=== PATIENT | female | born 1955 | race Caucasian/White ===

== ENCOUNTER → 2019-08-13 13:04 | Outpatient (CLI) | payer OTHER, SELFPAY ==
--- NOTE | 2019-08-13 13:07 | DI.MG.S_ITS ---
BILATERAL DIGITAL DIAGNOSTIC MAMMOGRAM 3D/2D: 08/13/2019 CLINICAL: Left breast lump. Comparison is made to exams dated: 02/06/2018 mammogram, 05/25/2016 mammogram, and 10/20/2014 mammogram - [facility]. There are scattered fibroglandular elements in both breasts. No significant masses, calcifications, or other findings are seen in either breast. IMPRESSION: INCOMPLETE: NEEDS ADDITIONAL IMAGING EVALUATION There is no mammographic abnormality seen in the left breast to correspond with the palpable abnormality at 6 o'clock, however, targeted ultrasound of the left breast is recommended and will be performed immediately following this exam. This exam was interpreted at Station ID: [id number]. NOTE: For mammograms, a report in lay terms will be sent to the patient. Approximately 15% of breast malignancies will not be visualized mammographically. In the management of a palpable breast mass, a negative mammogram must not discourage biopsy of a clinically suspicious lesion. Electronically Signed By: Abida Enriquez M.D. lk/:08/13/2019 13:41:09 ACR BI-RADS Category 0: Incomplete [id number]
--- NOTE | 2019-08-13 13:07 | DI.US.S_ITS ---
ULTRASOUND OF LEFT BREAST: 08/13/2019 CLINICAL: Palpable left breast lump by physician. Comparison is made to exams dated: 08/13/2019 mammogram - [facility], 02/06/2018 mammogram, 05/25/2016 mammogram, and 10/20/2014 mammogram - [facility]. Color flow ultrasound of the left breast was performed on the areas of interest. Marquez scale images of the real-time examination were reviewed. IMPRESSION: NEGATIVE There is no sonographic evidence of malignancy. There is no mammographic or sonographic abnormality seen in the left breast to correspond with the palpable abnormality, however, clinical followup is recommended. A 1 year screening mammogram is recommended. This exam was interpreted at Station ID: [id number]. Electronically Signed By: Abida mcclure/chika:08/13/2019 14:27:45 letter sent: Clinical Evaluation Ultrasound BI-RADS: 1 Negative
== END ==
PROVIDERS: PCP Nurse Practitioner; Visit Provider Nurse Practitioner
DX: R92.8 Other abnormal and inconclusive findings on diagnostic imaging of breast (principal); N63.25 Unspecified lump in the left breast, overlapping quadrants
CPT/HCPCS: 76642; 77066; G0279

== ENCOUNTER → 2020-09-20 11:38 | Outpatient (CLI) | payer OTHER, SELFPAY ==
--- NOTE | 2020-09-20 | DI.MG.S_ITS ---
BILATERAL DIGITAL SCREENING MAMMOGRAM 3D/2D WITH CAD: 09/20/2020 CLINICAL: Routine screening. Family history of breast cancer. Comparison is made to exams dated: 08/13/2019 mammogram - [facility], 02/06/2018 mammogram, and 05/25/2016 mammogram - [facility]. There are scattered fibroglandular elements in both breasts. Current study was also evaluated with a Computer Aided Detection (CAD) system. No significant masses, calcifications, or other findings are seen in either breast. There has been no significant interval change. IMPRESSION: NEGATIVE There is no mammographic evidence of malignancy. A 1 year screening mammogram is recommended. This exam was interpreted at Station ID: [id number]. NOTE: For mammograms, a report in lay terms will be sent to the patient. Approximately 15% of breast malignancies will not be visualized mammographically. In the management of a palpable breast mass, a negative mammogram must not discourage biopsy of a clinically suspicious lesion. Electronically Signed By: Marv delacruz/chika:09/20/2020 13:02:04 letter sent: Normal Exam ACR BI-RADS Category 1: Negative [id number]
== END ==
PROVIDERS: PCP Student in an Organized Health Care Education/Training Program; Referring Provider Student in an Organized Health Care Education/Training Program; Visit Provider Student in an Organized Health Care Education/Training Program
DX: Z12.31 Encounter for screening mammogram for malignant neoplasm of breast (principal); Z80.3 Family history of malignant neoplasm of breast
CPT/HCPCS: 77063; 77067

== ENCOUNTER → 2021-10-05 07:41 | Outpatient (CLI) | payer OTHER, SELFPAY ==
--- NOTE | 2021-10-05 | DI.MG.S_ITS ---
BILATERAL DIGITAL SCREENING MAMMOGRAM 3D/2D WITH CAD: 10/05/2021 CLINICAL: Routine screening. Family history of breast cancer. Comparison is made to exams dated: 09/20/2020 mammogram, 08/13/2019 mammogram - [facility], and 02/06/[address] [facility]. There are scattered fibroglandular elements in both breasts. Current study was also evaluated with a Computer Aided Detection (CAD) system. There is a possible developing asymmetry in the left breast posterior depth lateral region seen on the craniocaudal view only. This is more prominent. There also is possible developing architectural distortion in the left breast anterior depth central to the nipple seen on the craniocaudal view only. No other significant masses, calcifications, or other findings are seen in either breast. IMPRESSION: INCOMPLETE: NEEDS ADDITIONAL IMAGING EVALUATION The possible developing asymmetry in the left breast posterior depth lateral region seen on the craniocaudal view only is indeterminate. The possible developing architectural distortion in the left breast anterior depth central to the nipple seen on the craniocaudal view only is indeterminate. Additional views with possible ultrasound are recommended. This exam was interpreted at Station ID: [id number]. NOTE: For mammograms, a report in lay terms will be sent to the patient. Approximately 15% of breast malignancies will not be visualized mammographically. In the management of a palpable breast mass, a negative mammogram must not discourage biopsy of a clinically suspicious lesion. Electronically Signed By: Jonatan Maki M.D. slc/:10/05/2021 09:35:50 letter sent: Additional Imaging Needed ACR BI-RADS Category 0: Incomplete [id number]
== END ==
PROVIDERS: PCP Student in an Organized Health Care Education/Training Program; Referring Provider Student in an Organized Health Care Education/Training Program; Visit Provider Student in an Organized Health Care Education/Training Program
DX: Z12.31 Encounter for screening mammogram for malignant neoplasm of breast (principal); Z80.3 Family history of malignant neoplasm of breast
CPT/HCPCS: 77063; 77067

== ENCOUNTER → 2021-11-17 11:55 | Outpatient (CLI) | payer OTHER, SELFPAY ==
--- NOTE | 2021-11-17 | DI.MG.S_ITS ---
UNILATERAL LEFT DIGITAL DIAGNOSTIC MAMMOGRAM 3D/2D WITH ADDITIONAL VIEWS: 11/17/2021 CLINICAL: Additional evaluation requested from prior study. Comparison is made to exams dated: 10/05/2021 mammogram, 09/20/2020 mammogram, 08/13/2019 ultrasound, 08/13/[address] - [facility], and 02/06/2018 mammogram - [facility]. There are scattered fibroglandular elements in left breast. The previously seen possible developing asymmetry and area of possible architectural distortion in the left breast are no longer visualized, presumably secondary to superimposed fibroglandular breast tissue on the prior exam. No significant masses, calcifications, or other findings are seen in the breast. IMPRESSION: NEGATIVE There is no mammographic evidence of malignancy. Return to annual mammogram screening schedule is recommended. This exam was interpreted at Station ID: [id number]. NOTE: For mammograms, a report in lay terms will be sent to the patient. Approximately 15% of breast malignancies will not be visualized mammographically. In the management of a palpable breast mass, a negative mammogram must not discourage biopsy of a clinically suspicious lesion. Electronically Signed By: Marv delacruz/chika:11/17/2021 13:34:58 letter sent: Normal Exam ACR BI-RADS Category 1: Negative [id number]
== END ==
PROVIDERS: PCP Student in an Organized Health Care Education/Training Program; Referring Provider Student in an Organized Health Care Education/Training Program; Visit Provider Student in an Organized Health Care Education/Training Program
DX: R92.8 Other abnormal and inconclusive findings on diagnostic imaging of breast (principal)
CPT/HCPCS: 77065; G0279

== ENCOUNTER → 2022-06-29 10:38 | Outpatient (CLI) | payer MEDICARE, OTHER, SELFPAY | PROVIDERS: PCP Registered Nurse; Referring Provider Registered Nurse; Visit Provider Registered Nurse | DX: Z13.820 Encounter for screening for osteoporosis (principal); Z78.0 Asymptomatic menopausal state | CPT/HCPCS: 77080 ==

== ENCOUNTER 2022-10-24 19:36 | Emergency (ER) | payer MEDICARE, OTHER, SELFPAY ==
[2022-10-24 19:46] VITALS: BP 191/88; PULSE 75; RESP 20; TEMP 36.9; O2SAT 100; BMI 21.1
--- NOTE | 2022-10-24 20:00 | ED_ITS ---
HPI - Dental/Oral General Chief complaint: Dental/Oral Stated complaint: BP high/jaw pain Time Seen by Provider: 10/24/22 19:55 Source: patient Mode of arrival: Ambulatory Limitations: no limitations History of Present Illness HPI Narrative: This is a 67-year-old female with history of Raynaud's who presents with right dental/jaw pain. Patient states it has been present since Saturday. Patient saw the dentist no infection but they did refer her to see Dermatology as there is a spot in that area. She is had similar symptoms a few years ago that resolved without any intervention she saw a dentist at that time followed up there PCP and it eventually resolved. Patient notes it seems to be the upper teeth posteriorly on the right. She states it is worse if she bites down it is 5/7 at all times but 7/10 when she bites. She states it sometimes goes down to the other teeth. She has not had any swelling, redness or skin changes otherwise. She denies fevers or chills, no chest pain, no shortness of breath, no nausea no vomiting no radiation elsewhere. Patient took some ibuprofen earlier today but states that often makes her blood pressure go up. She was checking her blood pressure at home and noted it was elevated to the 170 range. She is not taken anything since noon for pain. Patient states that she does not have a history of hypertension, her systolic is typically much lower. Patient states she is allergic to amlodipine she was on it for Raynaud's and had reaction as well as sulfa and lidocaine. No tobacco, alcohol or illicit. She is accompanied by her sister. Related Data Home Medications Medication Instructions Recorded Confirmed cholecalciferol (vitamin D3) 50 3,000 unit PO DAILY 05/08/19 06/23/19 mcg (2,000 unit) capsule loratadine 10 mg tablet (Allergy 10 mg PO DAILY 05/08/19 06/23/19 Relief (loratadine)) multivit with 1 tab PO DAILY 05/08/19 06/23/19 [id number]-NH-lutein 8 mg iron-400 mcg-300 mcg tablet (Multivitamin Women 50 Plus) omega-3 fatty acids 1,000 mg 1,000 mg PO DAILY 05/08/19 06/23/19 capsule (Fish Oil Concentrate) psyllium husk (with sugar) 3 1 tbsp PO DAILY 05/08/19 06/23/19 gram/7 gram oral powder (Metamucil Free) triamcinolone acetonide 55 mcg intranasal 05/08/19 06/23/19 mcg/actuation nasal spray,aerosol Previous Rx's Medication Instructions Recorded conjugated estrogens 0.625 mg/gram 0.625 mg vaginal DAILY vaginal 06/23/19 vaginal cream atrophy #30 grams varicella-zoster glycoE [id number] 0.5 ml IM ONCE #1 ea 06/23/19 adj(PF) 50 mcg/0.5 mL IM susp, kit (Shingrix (PF)) albuterol sulfate 90 mcg/actuation 1 puff inhalation Q4-6H PRN 1 puff 07/14/19 aerosol inhaler (Ventolin HFA) inhaled as needed for SOB #6.7 grams Allergies Allergy/AdvReac Type Severity Reaction Status Date / Time Latex, Natural Rubber Allergy Verified 10/24/22 19:56 lidocaine Allergy Verified 10/24/22 19:56 Sulfa (Sulfonamide Allergy Verified 10/24/22 19:56 Antibiotics) amlodipine AdvReac Cramping Verified 10/24/22 19:56 of the Muscles Review of Systems Review of Systems ROS Unobtainable: All systems reviewed & are unremarkable except as noted in HPI and below Patient History Medical History Allergies (~1969) Alopecia (~2010) Chicken pox (~1962) Encounter for HCV screening test for high risk patient History of anemia (~1995) History of environmental allergies Hyperlipidemia Measles (~1967) Mumps (~1961) Postmenopausal Raynaud disease Recurrent sinusitis (~1977) Rubella (~1964) Vision disorder Surgical History Anesthesia History of dilatation and curettage (~12/1979) History of tonsillectomy and adenoidectomy (~04/1962) Family History Father Cancer History of heart disease Arthritis Mother Cancer Hypertension Brother Hypertension Sister Hypothyroidism Social History Smoking Status: Never smoker Smoking Status: Never smoker alcohol intake frequency: 0-2 drinks per day Substance Use Type: does not use Exam Narrative Exam Narrative: GEN: well nourished, well appearing female, alert and oriented x 3, patient appears to be in mild distress. HEENT: Atraumatic, pupils are equal round reactive to light, extraocular movements are intact, nares are clear, TMs are clear with no fluid, there is no conjunctival pallor. Throat is clear without any exudates, erythema, tonsillar enlargement or uvular deviation, patient has slight hyperpigmented area posterior to the right upper molars, there is no swelling, there is no drainage, there is no obvious mass or other skin changes such as necrosis, ulceration. Patient does not have any significant swelling around the teeth she has full range of motion of her mouth. No clear dental caries or other signs of infection. HEART: Regular rate and rhythm without murmur, clicks, rubs. LUNGS:Lungs clear to auscultation, no wheezes, rales, crackles, chest moves symmetrically ABD:bowel sounds normal, soft, non-tender, no guarding, rebound, rigidity, no masses noted, no hepatosplenomegaly :No CVA tenderness MSCL: Non-tender, no muscle atrophy, muscles strength 5/5 upper and lower extremities, full range of motion, normal gait NEURO:CN 2-12 intact, sensation normal. SKIN: Warmth, erythema or other skin changes. Initial Vital Signs Initial Vital Signs: Vital Signs Temperature 98.4 F 10/24/22 19:46 Pulse Rate 75 10/24/22 19:46 Respiratory Rate 20 10/24/22 19:46 Blood Pressure 191/88 H 10/24/22 19:46 Pulse Oximetry 100 10/24/22 19:46 Oxygen Delivery Method Room Air 10/24/22 19:46 Course Vital Signs Vital signs: Vital Signs - 8 hr 10/24/22 19:46 Temperature 98.4 F Pulse Rate 75 Respiratory Rate 20 Blood Pressure 191/88 H Pulse Oximetry 100 Oxygen Delivery Method Room Air MDM - Dental/Oral MDM Narrative Medical decision making narrative: This is a 67-year-old female with complaint of dental pain. She saw a dentist today she does have an area of discoloration she is supposed to follow up with Dermatology for further evaluation. Patient is well-appearing without any significant signs of infection or airway involvement. She is hypertensive she had pain medication at knew she had ibuprofen which was helpful but did not c ontinue it she thinks it elevated her blood pressure. Patient does not have any other changes consistent with ACS or other concerning exam findings. Discussed with patient pain med control may improve her blood pressure she can continue to monitor and follow-up if persisting with elevation despite pain management. Discharge Plan Departure Patient Disposition: Home Clinical Impression: Pain, dental Instructions: DI for Dental Pain Activity Restrictions/Additional Instructions: I think it is very appropriate to follow-up with dermatology for further assessment. Please take Tylenol up to a 1000 mg every 6 hours as needed for pain and/or ibuprofen up to 600 mg every 6 hours as needed. You can try clove oil or topical Orajel to the affected area as needed. Please return for fevers increasing swelling, rapidly worsening pain, swelling of the tongue, airway, face, warmth redness, vomiting or other or new or concerning changes. Prescriptions: No Action albuterol sulfate [Ventolin HFA] 90 mcg/actuation HFA aerosol inhaler 1 puff INHALATION Q4-6H PRN (Reason: 1 puff inhaled as needed for SOB) Qty: 6.7 2RF conjugated estrogens 0.625 mg/gram cream 0.625 mg VAG DAILY Qty: 30 11RF Rx Instructions: Insert vaginally each night x14 days then M-W-F thereafter Shingrix (PF) 50 mcg/0.5 mL suspension for reconstitution 0.5 ml IM ONCE Qty: 1 0RF Rx Instructions: as a single dose Metamucil Free 3 gram/7 gram powder 1 tbsp PO DAILY omega-3 fatty acids [Fish Oil Concentrate] 1,000 mg capsule 1,000 mg PO DAILY Multivitamin Women 50 Plus 8 mg iron-400 mcg-300 mcg tablet 1 tab PO DAILY cholecalciferol (vitamin D3) 2,000 unit capsule 3,000 unit PO DAILY loratadine [Allergy Relief (loratadine)] 10 mg tablet 10 mg PO DAILY triamcinolone acetonide 55 mcg/actuation aerosol NASAL Referrals: Ansley Caldwell ARNP [Primary Care Provider] - Stand Alone Forms: Patient Portal/API
== END 2022-10-24 20:20 | disposition home or self-care (01) ==
PROVIDERS: Emergency Provider Emergency Medicine; PCP Registered Nurse
DX: K08.89 Other specified disorders of teeth and supporting structures (principal)
CPT/HCPCS: 99281

== ENCOUNTER → 2022-11-02 12:44 | Outpatient (CLI) | payer MEDICARE, OTHER, SELFPAY ==
--- NOTE | 2022-11-02 | DI.CT.S_ITS ---
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 For radiation dose reduction, the following was used: automated exposure control, adjustment of mA and/or kV according to patient size. COMPARISON: None. FINDINGS: Image quality: There is artifact associated with the metallic hardware. Artifact from the metallic hardware is reduced by metal reconstruction algorithm. CSF spaces: Basal cisterns are patent. No extra-axial fluid collections. The ventricles are symmetric in size and shape. Brain: No intracranial bleeds or masses. There is cerebral volume loss for age, with resultant ventricular and sulcal prominence. There are periventricular and deep white matter chronic small vessel ischemic changes. There is intracranial internal carotid artery atherosclerosis. Skull and face: Calvarium and visualized facial bones appear intact, without suspicious lesions. The lips are partially seen on this noncontrast head CT. Sinuses: Visualized sinuses and mastoids are clear. IMPRESSION: Limited evaluation of the lips on this noncontrast head CT. If clinically appropriate, please consider a follow-up maxillofacial CT versus MRI of the face for further evaluation. No significant intracranial abnormality is seen on this noncontrast head CT. Dictated by: Stephon Stephens M.D. on 11/02/2022 at 12:48 Approved by: Stephon Stephens M.D. on 11/02/2022 at 12:50
== END ==
PROVIDERS: PCP Registered Nurse; Referring Provider Registered Nurse; Visit Provider Registered Nurse
DX: D37.01 Neoplasm of uncertain behavior of lip
CPT/HCPCS: 70450

== ENCOUNTER → 2023-03-19 13:47 | Outpatient (CLI) | payer MEDICARE, OTHER, SELFPAY ==
--- NOTE | 2023-03-19 | DI.ECHO.S_ITS ---
[facility] +---------+ : : [address] : : : : [id number] : : : : Phone: [phone] Echocardiogram Report + + :Name: HAL POSEY Study Date: 03/19/2023 Height: 67 in : :[facility] ReadingLocation: Weight: 135 lb : : Gender: Female BSA: 1.7 m2 : :: 1955 Age: 67 yrs BP: 140/104 mmHg: :Reason For Study: BRADYCARDIA : :Ordering Physician: DALIA, : :BUCKY Performed By: Sarai Chang : :Referring: BUCKY GÓMEZ : + + Interpretation Summary Normal both left and right ventricle size and function. The ejection fraction is 55-60%. No significant valvular abnormality. Procedure: A two-dimensional transthoracic echocardiogram with color flow and Doppler was performed. The study quality was technically adequate. There is no prior echocardiogram noted for this patient. The patient was in sinus rhythm with heart rates between 57-63 bpm during the exam. Left Ventricle: The left ventricle is normal in size and wall thickness. The ejection fraction is estimated to be 55-60%. There are no focal wall motion abnormalities. Diastolic parameters suggest probable normal left ventricular diastolic function and normal filling pressures. Right Ventricle: The right ventricle is normal in size and function. Atria: The left atrial size is normal. Right atrial size is normal. There is no Doppler evidence for an interatrial shunt. Mitral Valve: The mitral valve is normal in structure and function. There is mild mitral regurgitation. Aortic Valve: The aortic valve is trileaflet. The aortic valve opens well. There is no aortic valve stenosis. No aortic regurgitation is present. Tricuspid Valve: The tricuspid valve is normal in structure and function. There is mild tricuspid regurgitation. The right ventricular systolic pressure is estimated to be at least 17 mmHg based on an estimated right atrial pressure of 3 mm Hg. Pulmonic Valve: The pulmonic valve leaflets are thin and pliable; valve motion is normal. There is mild pulmonic regurgitation. Great Vessels: The aortic root is normal size. The dimensions of the ascending aorta are normal. The IVC is of normal diameter and collapses greater than 50% with a sniff. This suggests a low right atrial pressure of 3 mm Hg. Pericardium/ Pleura There is no pericardial effusion. There is no pleural effusion. MMode/2D Measurements & Calculations LVIDd: 4.6 cm LVOT diam: 1.9 cm LVIDs: 3.5 cm Ao root diam: 3.3 cm FS: 25.3 % asc Aorta Diam: 3.4 cm EPSS: 0.39 cm Ao Arch Diam (Prox Trans): 2.1 cm IVSd: 0.67 cm LVPWd: 0.53 cm LV treviño. diameter/BSA (cm/m^2): 2.7 LV sys. diameter/BSA (cm/m^2): 2.0 LA A2 area: 15.0 cm2 RA long axis: 4.1 cm LA A4 area: 14.0 cm2 RA area: 14.5 cm2 LA length (vol): 4.6 cm RA vol: 43.1 ml LA vol: 39.2 ml RA : 25.2 ml/m2 LA vol index: 22.9 ml/m2 IVC diam: 1.6 cm RVD1 (basal): 4.4 cm RVD2 (mid): 3.8 cm TAPSE: 2.4 cm Doppler Measurements & Calculations Ao V2 max: 113.9 cm/sec LVOT Max Krishna: 92.9 cm/sec Ao V2 mean: 90.9 cm/sec LV V1 max P.5 mmHg Ao max P.2 mmHg LV V1 VTI: 21.0 cm Ao mean P.4 mmHg SNEHA(I,D): 2.6 cm2 Ao V2 VTI: 23.9 cm SNEHA(V,D): 2.4 cm2 sev ratio: 0.88 SNEHA indexed to BSA (cm^2/m^2): 1.5 MV E max krishna: 59.9 cm/sec TR max krishna: 185.6 cm/sec MV A max krishna: 55.0 cm/sec TR max P.8 mmHg MV E/A: 1.1 PA V2 max: 77.9 cm/sec Med Peak E' Krishna: 8.2 cm/sec PA V2 mean: 54.3 cm/sec E/E' med: 7.3 PA mean P.3 mmHg Lat Peak E' Krishna: 9.1 cm/sec PA pr(Accel): 34.5 mmHg E/E' lat: 6.6 E/e' average: 6.9 MV dec time: 0.24 sec SV(LVOT): 62.2 ml Electronically signed by: Mihaela Torres on Reading Physician:03/19/2023 04:44 PM
== END ==
PROVIDERS: PCP Registered Nurse; Referring Provider Registered Nurse; Visit Provider Registered Nurse
DX: I08.1 Rheumatic disorders of both mitral and tricuspid valves (principal); R00.1 Bradycardia, unspecified
CPT/HCPCS: 93306

== ENCOUNTER 2023-04-26 14:35 | Emergency (ER) | payer MEDICARE, OTHER, SELFPAY ==
[2023-04-26 14:41] VITALS: BP 161/74; PULSE 80; RESP 17; TEMP 37; O2SAT 100; BMI 21.1
--- NOTE | 2023-04-26 14:43 | DI.RAD.S_ITS ---
PROCEDURE: XR ANKLE RT MIN 3V INDICATIONS: twisted TECHNIQUE: 3 views of the ankle were acquired. COMPARISON: None. FINDINGS: Bones: Small osseous fragment along the lateral aspect of the foot.. Ankle mortise is normally aligned. No suspicious bony lesions. Soft tissues: No tibiotalar joint effusion. Achilles tendon appears normal. IMPRESSION: Small osseous fragment along the lateral aspect of the foot, this may represent an avulsion fracture. Recommend follow-up radiograph in 10-14 days to assess stability or evidence of healing. Dictated by: Eliel Loredo M.D. on 04/26/2023 at 15:32 Approved by: Eliel Loredo M.D. on 04/26/2023 at 15:33
--- NOTE | 2023-04-26 14:43 | DI.RAD.S_ITS ---
PROCEDURE: XR FOOT RT MIN 3V INDICATIONS: twisted TECHNIQUE: 3 views of the foot were acquired. COMPARISON: None. FINDINGS: Bones: Small irregularity of the lateral aspect of the cuboid, may represent small avulsion fracture. No suspicious bony lesions. Soft tissues: No tibiotalar joint effusion. Achilles tendon appears normal. IMPRESSION: Small irregularity along the lateral aspect of the cuboid, may represent small avulsion fracture. Dictated by: Eliel Loredo M.D. on 04/26/2023 at 15:33 Approved by: Eliel Loredo M.D. on 04/26/2023 at 15:35
[2023-04-26 15:55] VITALS: PULSE 82
--- NOTE | 2023-04-26 15:58 | ED_ITS ---
HPI - Extremity Injury (Lower) <Wesley Boone PA-C - Last Filed: 04/26/23 16:40> General Chief Complaint: Extremity Injury, Lower Stated Complaint: RT ANKLE/FOOT INJURY Time Seen by Provider: 04/26/23 15:54 Source: patient Mode of arrival: Ambulatory History of Present Illness HPI Narrative: This is a 67-year-old female presents to the emergency department due to stepping off a log and landing awkwardly on her right foot. She states she has moderate pain to the lateral foot on the right. Denies any numbness or decreased range of motion of the ankle. Denies any knee pain or any other pain to the rest of her body. Related Data Home Medications Medication Instructions Recorded Confirmed cholecalciferol (vitamin D3) 50 3,000 unit PO DAILY 05/08/19 06/23/19 mcg (2,000 unit) capsule loratadine 10 mg tablet (Allergy 10 mg PO DAILY 05/08/19 04/26/23 Relief (loratadine)) [id number] 8 mg-folic 400 1 tab PO DAILY 05/08/19 06/23/19 mcg-K 50 mcg-lutein 300 mcg tablet (Multivitamin Women 50 Plus) omega-3 fatty acids 1,000 mg 1,000 mg PO DAILY 05/08/19 06/23/19 capsule (Fish Oil Concentrate) psyllium husk (with sugar) 3 1 tbsp PO DAILY 05/08/19 06/23/19 gram/7 gram oral powder (Metamucil Free) triamcinolone acetonide 55 mcg intranasal 05/08/19 06/23/19 mcg/actuation nasal spray,aerosol Previous Rx's Medication Instructions Recorded conjugated estrogens 0.625 mg/gram 0.625 mg vaginal DAILY vaginal 06/23/19 vaginal cream atrophy #30 grams varicella-zoster glycoE [id number] 0.5 ml IM ONCE #1 ea 06/23/19 adj(PF) 50 mcg/0.5 mL IM susp, kit (Shingrix (PF)) Allergies Allergy/AdvReac Type Severity Reaction Status Date / Time Latex, Natural Rubber Allergy Intermediate Rash Verified 04/26/23 14:39 Sulfa (Sulfonamide Allergy Mild Hives Verified 04/26/23 14:39 Antibiotics) lidocaine AdvReac Intermediate Palpitation Verified 04/26/23 14:39 s amlodipine AdvReac Mild Cramping Verified 04/26/23 14:39 of the Muscles Review of Systems <Wesley Boone PA-C - Last Filed: 04/26/23 16:40> Review of Systems Narrative: GENERAL: Denies chills, fatigue, malaise, fever, sweats. HEENT: Denies sinus pain, ear pain, sore throat, difficulty swallowing, dizziness. RESPIRATORY: Denies dyspnea, cough, wheezing, hemoptysis, sputum. CARDIOVASCULAR: Denies chest pain, palpitations, orthopnea, edema, GASTROINTESTINAL: Denies nausea, vomiting, abdominal pain, diarrhea, constipation, melena. : Denies dysuria, frequency, incontinence, hematuria, urinary retention. MUSCULOSKELETAL: Reports right foot pain SKIN: Denies rash, skin lesions, or other NEUROLOGIC: Denies weakness, headache, numbness, change in speech, confusion, seizures, incoordination. PSYCHIATRIC: No concerning psychosocial issues. 12 point review of systems is negative except for those stated above Patient History <Wesley Boone PA-C - Last Filed: 04/26/23 16:40> Medical History Allergies (~1969) Alopecia (~2010) Chicken pox (~1962) Encounter for HCV screening test for high risk patient History of anemia (~1995) History of environmental allergies Hyperlipidemia Measles (~1967) Mumps (~1961) Postmenopausal Raynaud disease Recurrent sinusitis (~1977) Rubella (~1964) Vision disorder Surgical History Anesthesia History of dilatation and curettage (~12/1979) History of tonsillectomy and adenoidectomy (~04/1962) Family History Father Cancer History of heart disease Arthritis Mother Cancer Hypertension Brother Hypertension Sister Hypothyroidism Social History Smoking Status: Never smoker Smoking Status: Never smoker alcohol intake frequency: other Substance Use Type: does not use Exam <COLIN Dykes Last Filed: 04/26/23 16:40> Narrative Exam Narrative: GENERAL: Well-developed patient, in mild distress. HEAD: Atraumatic. Normocephalic. EYES: Pupils equal round and reactive. Extraocular motions intact. No scleral icterus. No injection or drainage. ENT: Nose without bleeding, purulent drainage. Throat without erythema, tonsillar hypertrophy or exudate. Airway patent. NECK: Trachea midline. Non tender CARDIOVASCULAR: Regular rate and rhythm without murmurs, gallops, or rubs. RESPIRATORY: Clear to auscultation. Breath sounds equal bilaterally. No wheezes, rales, or rhonchi. GASTROINTESTINAL: Abdomen soft, non-tender, nondistended. EXTREMITIES: Mild tenderness to palpation to the proximal right lateral foot BACK: Nontender without deformity or crepitance. No flank tenderness. NEURO: AOx3. SKIN: No rash or erythema of visible areas Initial Vital Signs Initial Vital Signs: Vital Signs Temperature 98.6 F 04/26/23 14:41 Pulse Rate 80 04/26/23 14:41 Respiratory Rate 17 04/26/23 14:41 Blood Pressure 161/74 H 04/26/23 14:41 Pulse Oximetry 100 04/26/23 14:41 Oxygen Delivery Method Room Air 04/26/23 14:41 <Heraclio Puga DO - Last Filed: 04/27/23 09:04> Initial Vital Signs Initial Vital Signs: Vital Signs Temperature 98.6 F 04/26/23 14:41 Pulse Rate 80 04/26/23 14:41 Respiratory Rate 17 04/26/23 14:41 Blood Pressure 161/74 H 04/26/23 14:41 Pulse Oximetry 100 04/26/23 14:41 Oxygen Delivery Method Room Air 04/26/23 14:41 Course <Wesley Boone PA-C - Last Filed: 04/26/23 16:40> Orders Ordered: ED Orders 04/26/23 14:43 XR ankle RT min 3V Stat XR foot RT min 3V Stat Consultations Consultation #1: [id number]: Spoke with Dr. Landry, orthopedic surgeon, who recommended weight- bearing as tolerated, walking boot, and outpatient follow up Vital Signs Vital signs: Vital Signs - 8 hr 04/26/23 14:41 04/26/23 15:55 Temperature 98.6 F Pulse Rate 80 Pulse Rate [Right Dorsalis Pedis] 82 Respiratory Rate 17 Blood Pressure 161/74 H Pulse Oximetry 100 Oxygen Delivery Method Room Air <Heraclio Puga DO - Last Filed: 04/27/23 09:04> Orders Ordered: ED Orders 04/26/23 14:43 XR ankle RT min 3V Stat XR foot RT min 3V Stat Vital Signs Vital signs: Vital Signs - 8 hr 04/26/23 14:41 04/26/23 15:55 Temperature 98.6 F Pulse Rate 80 Pulse Rate [Right Dorsalis Pedis] 82 Respiratory Rate 17 Blood Pressure 161/74 H Pulse Oximetry 100 Oxygen Delivery Method Room Air MDM - Extremity Injury (Lower) <Wesley Boone PA-C - Last Filed: 04/26/23 16:40> Imaging Data Extremity x-ray #1: Radiologist's Impression: [address] [address] XRay Report Signed Patient: Eneida Landry MR#: [id number] : 1955 Acct:[id number] Age/Sex: 67 / F Date of Service: 04/26/23 Loc: ED Accession Number: [id number] Procedure: XR ankle RT min 3V Ordering Provider: Heraclio Puga D.O. PROCEDURE: XR ANKLE RT MIN 3V INDICATIONS: twisted TECHNIQUE: 3 views of the ankle were acquired. COMPARISON: None. FINDINGS: Bones: Small osseous fragment along the lateral aspect of the foot.. Ankle mortise is normally aligned. No suspicious bony lesions. Soft tissues: No tibiotalar joint effusion. Achilles tendon appears normal. IMPRESSION: Small osseous fragment along the lateral aspect of the foot, this may represent an avulsion fracture. Recommend follow-up radiograph in 10-14 days to assess stability or evidence of healing. Dictated by: Eliel Loredo M.D. on 04/26/2023 at 15:32 Approved by: Eliel Loredo M.D. on 04/26/2023 at 15:33 Foot XR: Radiologist's Impression: [address] [address] XRay Report Signed Patient: Eneida Landry MR#: [id number] : 1955 Acct:[id number] Age/Sex: 67 / F Date of Service: 04/26/23 Loc: ED Accession Number: [id number] Procedure: XR foot RT min 3V Ordering Provider: Heraclio Puga D.O. PROCEDURE: XR FOOT RT MIN 3V INDICATIONS: twisted TECHNIQUE: 3 views of the foot were acquired. COMPARISON: None. FINDINGS: Bones: Small irregularity of the lateral aspect of the cuboid, may represent small avulsion fracture. No suspicious bony lesions. Soft tissues: No tibiotalar joint effusion. Achilles tendon appears normal. IMPRESSION: Small irregularity along the lateral aspect of the cuboid, may represent small avulsion fracture. Dictated by: Eliel Loredo M.D. on 04/26/2023 at 15:33 Approved by: Eliel Loredo M.D. on 04/26/2023 at 15:35 MDM Narrative Medical decision making narrative: MDM * differential diagnosis includes but not limited to fracture, neurovascular injury, ankle sprain * Prior records reviewed: Patient was seen 6 months ago for dental pain. History of Raynaud's. * My lab interpretation: None obtained * My imgaing interpretation: X-ray findings suggestive for avulsion fracture to the lateral aspect of the cuboid of the right foot. * Clinical Decision Rules/Scores evaluated: None * Independent discussions with: None ED Course: This is a 67-year-old female presents emergency department due to a right foot injury. X-ray showed a small avulsion fracture to the lateral aspect of the cuboid. This was discussed with Dr. Landry, orthopedist who recommended weight-bearing as tolerated, walking boot, and outpatient follow up. Patient agreed for Tylenol ibuprofen as needed for pain control. Patient was neurovascularly intact throughout. Shared Decision Making: Discussed plan with patient who is comfortable with the plan. Social Considerations: None Disposition: Discharged to home Discharge Plan Departure Patient Disposition: Home Clinical Impression: Cuboid fracture Activity Restrictions/Additional Instructions: Thank you for coming to the [facility] Emergency Department today. Please use the walking boot and follow up with Dr. Landry for further management and evaluation. I recommend ibuprofen and Tylenol as needed for the pain. I hope you feel better soon. Please follow up with your primary care provider within a week if your symptoms continue. If you do not have a primary care provider please contact the [facility] Resource line at [phone]. They will ask some questions about your medical history and help you get set up with a provider in the community. Prescriptions: No Action conjugated estrogens 0.625 mg/gram cream 0.625 mg VAG DAILY Qty: 30 11RF Rx Instructions: Insert vaginally each night x14 days then M-W-F thereafter Shingrix (PF) 50 mcg/0.5 mL suspension for reconstitution 0.5 ml IM ONCE Qty: 1 0RF Rx Instructions: as a single dose Metamucil Free 3 gram/7 gram powder 1 tbsp PO DAILY omega-3 fatty acids [Fish Oil Concentrate] 1,000 mg capsule 1,000 mg PO DAILY Multivitamin Women 50 Plus 8 mg iron-400 mcg-300 mcg tablet 1 tab PO DAILY cholecalciferol (vitamin D3) 2,000 unit capsule 3,000 unit PO DAILY loratadine [Allergy Relief (loratadine)] 10 mg tablet 10 mg PO DAILY triamcinolone acetonide 55 mcg/actuation aerosol NASAL Referrals: Ansley Caldwell, [employer] ANALYST [Primary Care Provider] - Lei Landry MD [Physician] - (Follow up avulsion fracture of the lateral cuboid, thank you!) Stand Alone Forms: Patient Portal/API ED Sign-out <Heraclio Puga DO - Last Filed: 04/27/23 09:04> Cosign ED Attending Ryan Attestation: I was immediately available in the department for consultation. Documentation has been reviewed. I agree with assessment and plan.
[2023-04-26 16:40] VITALS: BP 148/69; PULSE 80; RESP 16; O2SAT 98
== END 2023-04-26 16:46 | disposition home or self-care (01) ==
PROVIDERS: Emergency Provider Physician Assistant Medical; PCP Registered Nurse
DX: S92.211A Displaced fracture of cuboid bone of right foot, initial encounter for closed fracture (principal); X50.1XXA Overexertion from prolonged static or awkward postures, initial encounter
CPT/HCPCS: 73610; 73630; 99281; 99283

== ENCOUNTER → 2023-06-18 | Outpatient (CLI) | payer MEDICARE, OTHER, SELFPAY ==
--- NOTE | 2023-06-19 00:43 | DI.NM.S_ITS ---
DATE OF SERVICE: 06/18/2023 PROCEDURE: Exercise perfusion study. INDICATIONS: Palpitations, SVT, history of VT, shortness of breath. RADIOPHARMACEUTICAL: 25 millicurie technetium-99m Myoview IV was injected at stress and 12.1 millicurie technetium-99m Myoview IV was injected at rest. CARDIAC STRESS: The patient underwent exercise perfusion study under the supervision of an attending staff. The patient walked on Julius protocol for 12 minutes and 41 seconds, achieved maximum heart rate of 167, which was 108% of target heart rate. Normal blood pressure response. Resting blood pressure 122/80 and peak blood pressure 166/88 mmHg. Achieved 12.8 METS of workload, JERROD -100%. Baseline rhythm was sinus. During stress, no convincing ischemic changes seen. The patient had 2-3 beats run of SVT and occasional PACs without any complex arrhythmias. No ventricular tachycardia. No chest pain or anginal symptoms. RAW DATA: Breast shadow seen. GATED STUDY: Stress LV ejection fraction 84% and resting LV ejection fraction 77% without any obvious wall motion abnormalities. Resting end- diastolic volume 84 mL. TID ratio 0.86, which is within normal limits. Lung/heart ratio 0.19, which is within normal limits. MYOCARDIAL PERFUSION SCAN: Stress supine, resting supine and stress prone images were compared to each other. Stress supine and resting supine images revealed small size, mildly decreased perfusion of basal anterior wall, which got completely resolved during stress prone images suggestive of breast tissue attenuation artifact. There was no convincing ischemia or infarction during stress prone images. CONCLUSION: This is a normal exercise myocardial perfusion study. Excellent exercise tolerance. Walked on Julius protocol for 12 minutes and 41 seconds. JERROD -100%. Normal hemodynamic response. No complex arrhythmias. No chest pain. Overall, low-risk myocardial perfusion scan. ChentericEneida - [employer]IP[employer]/fn/MT doc#: [id number]/job#: [id number] dd: 06/18/2023 16:44:00 dt: 06/19/2023 00:33:00 DICTATING MD/COPIES TO: Yohana Mackey MD COPIES MNE: JANETT;
== END ==
PROVIDERS: PCP Registered Nurse; Referring Provider Family Medicine; Visit Provider Family Medicine
DX: I47.10 Supraventricular tachycardia, unspecified (principal); I47.20 Ventricular tachycardia, unspecified; R07.9 Chest pain, unspecified; R55 Syncope and collapse; R42 Dizziness and giddiness
CPT/HCPCS: 78452; 93017; A9502

== ENCOUNTER → 2024-04-17 09:19 | Outpatient (CLI) | payer MEDICARE, OTHER, SELFPAY ==
--- NOTE | 2024-04-17 09:21 | DI.MG.S_ITS ---
BILATERAL DIGITAL SCREENING MAMMOGRAM 3D/2D WITH CAD: 04/17/2024 CLINICAL: Routine screening. Family history of breast cancer. Comparison is made to exams dated: 10/05/2021 mammogram, 09/20/2020 mammogram, and 08/13/2019 mammogram - [facility]. The breasts are heterogeneously dense, which may obscure small masses (category c / 51-75% glandular tissue). Current study was also evaluated with a Computer Aided Detection (CAD) system. No significant masses, calcifications, or other findings are seen in either breast. There has been no significant interval change. IMPRESSION: NEGATIVE There is no mammographic evidence of malignancy. A 1 year screening mammogram is recommended. Based on the Tyrer Cuzick model (a risk assessment model) the patient's lifetime risk is 12.9% and her 10 year risk is 6.6%. According to the ACR, ACS, and NCCN guidelines, an annual breast MRI exam along with mammogram is recommended if the patient's lifetime risk is 20% or greater. This exam was interpreted at Station ID: [id number]. NOTE: For mammograms, a report in lay terms will be sent to the patient. Approximately 15% of breast malignancies will not be visualized mammographically. In the management of a palpable breast mass, a negative mammogram must not discourage biopsy of a clinically suspicious lesion. Electronically Signed By: Omar lee/chika:04/17/2024 16:54:09 letter sent: Normal Exam ACR BI-RADS Category 1: Negative
== END ==
PROVIDERS: PCP Registered Nurse; Referring Provider Registered Nurse; Visit Provider Registered Nurse
DX: Z12.31 Encounter for screening mammogram for malignant neoplasm of breast (principal); Z80.3 Family history of malignant neoplasm of breast; R92.333 Mammographic heterogeneous density, bilateral breasts
CPT/HCPCS: 77063; 77067

== ENCOUNTER → 2025-05-13 09:42 | Outpatient (CLI) | payer MEDICARE, OTHER, SELFPAY | LOC: PHYS 09:44 | PROVIDERS: Family Provider Registered Nurse; PCP Registered Nurse; Referring Provider Registered Nurse; Visit Provider Registered Nurse | DX: G56.21 Lesion of ulnar nerve, right upper limb (principal) | CPT/HCPCS: 95886; 95910 ==

== ENCOUNTER → 2025-06-03 11:21 | Outpatient (CLI) | payer MEDICARE, OTHER, SELFPAY ==
--- NOTE | 2025-06-03 11:22 | DI.RAD.S_ITS ---
PROCEDURE: XR DEXA AXIAL SKELETON INDICATIONS: annual screening COMPARISON: [facility], CR, XR DEXA AXIAL SKELETON, 06/29/2022, 11:00. FINDINGS: Lumbar Spine: Bone mineral density 0.900 g/cm2, T score -1.4, no significant change compared to prior. Left Femoral Neck: Bone mineral density 0.694 g/cm2, T score -1.4. Left Hip: Bone mineral density 0.842 g/cm2, T score -0.8, decreased by 5.4%. Fracture Risk Calculation (when applicable): 10-year fracture risk of a major osteoporotic fracture 8.4 percent and of a hip fracture 1.1 percent. (T score greater or equal to -1.0 to: NORMAL) (T score from -1.1 to -2.4: OSTEOPENIA) (T score less than or equal to -2.5: OSTEOPOROSIS) IMPRESSION: Low bone mineral density (osteopenia) by WHO classification. Follow-up guidelines as follows: Osteoporosis: Consider a repeat DEXA and Vertebral Fracture Assessment (VFA) exam in 2 years or sooner if medically necessary, to reassess this patient's status. Osteopenia: Consider a repeat DEXA in 2-3 years to reassess this patient's status, or if there is a new clinical indication. Normal: Consider a repeat DEXA in 5 years or sooner, or if there is a new clinical indication. All treatment decisions require clinical judgment and consideration of individual patient factors, including patient preferences, comorbidities, previous drug use, risk factors not captured in the FRAX model (e.g., frailty, falls, vitamin D deficiency, increased bone turnover, interval significant decline in bone density ) and possible under- or over-estimation of fracture risk by FRAX. In addition, the NOF Guide recommends that FDA-approved medical therapies be considered in postmenopausal women and men age >= 50 years with a: * Hip or vertebral (clinical or morphometric) fracture * T-score of <=-2.5 at the spine or hip * Ten-year fracture probability by FRAX of >= 3% for hip fracture or >=20% for major osteoporotic fracture. Dictated by: Eliel Loredo M.D. on 06/05/2025 at 13:21 Approved by: Eliel Loredo M.D. on 06/05/2025 at 13:26
== END ==
PROVIDERS: Family Provider Registered Nurse; PCP Registered Nurse; Referring Provider Registered Nurse; Visit Provider Registered Nurse
DX: M85.89 Other specified disorders of bone density and structure, multiple sites (principal)
CPT/HCPCS: 77080

== ENCOUNTER → 2025-06-03 11:24 | Outpatient (CLI) | payer MEDICARE, OTHER, SELFPAY ==
--- NOTE | 2025-06-03 11:25 | DI.MG.S_ITS ---
MM screening mammo BI: 06/03/2025. BI-RADS: 1 CLINICAL: 70-year old female for bilateral screening mammogram. Tyrer-Cuzick lifetime risk of 12.2%. Current reported family history of breast cancer: mother. PRIOR EXAMS 04/17/2024, 11/17/2021, 10/05/2021, 09/20/2020, MAMMOGRAPHY TECHNIQUE: 2D and 3D (tomosynthesis) digital mammographic views obtained, with additional images as needed for full coverage. Current study was also evaluated with a Computer Aided Detection (CAD) system. DENSITY C. The breasts are heterogeneously dense, which may obscure small masses. MAMMOGRAPHY FINDINGS Bilateral: No suspicious mass, asymmetry, microcalcification, or other abnormality seen. IMPRESSION: * No evidence of malignancy. RECOMMENDATIONS Bilateral * Annual screening mammography. OVERALL ASSESSMENT CATEGORY BI-RADS-1: Negative. The [employer] recommends annual screening mammography beginning at age 40 for women with average risk of breast cancer. ELECTRONICALLY SIGNED: Omar Alfred M.D. on 06/04/2025 at 07:15:19 AM PT Interpreting Station ID: [id number]
== END ==
PROVIDERS: Family Provider Registered Nurse; PCP Registered Nurse; Referring Provider Registered Nurse; Visit Provider Registered Nurse
DX: Z12.31 Encounter for screening mammogram for malignant neoplasm of breast (principal); R92.333 Mammographic heterogeneous density, bilateral breasts; Z80.3 Family history of malignant neoplasm of breast
CPT/HCPCS: 77063; 77067